=== PATIENT | male | born 1985 | race Caucasian/White ===

== ENCOUNTER 2017-01-24 12:28 | Emergency (ER) | payer OTHER ==
--- NOTE | 2017-01-24 13:04 | ER Document Report ---
ED Medical Screen (RME) - General Stated Complaint: POSSIBLE INSECT BITE Notes: Patient sent to the emergency room by the [facility] for infection to abdomen. Patient states he woke up he felt like a mosquito or something had bit him and it has progressively gotten worse over the last week. Now is draining. Denies fever. Patient states she does have nausea from the pain. I have greeted and performed a rapid initial assessment of this patient. A comprehensive ED assessment and evaluation of the patient, analysis of test results and completion of the medical decision making process will be conducted by additional ED providers. TRAVEL OUTSIDE OF THE [place] IN LAST 30 DAYS: No - Related Data Allergies/Adverse Reactions: aspartame Allergy (Verified 01/24/17 13:02) Past Medical History Renal/ Medical History: Reports: Hx Kidney Stones - Immunizations Hx Diphtheria, Pertussis, Tetanus Vaccination: Yes Physical Exam - Vital signs Vitals: Temp Pulse Resp BP Pulse Ox 99.5 F 74 15 125/87 H 99 01/24/17 13:00 01/24/17 13:00 01/24/17 13:00 01/24/17 13:00 01/24/17 13:00 - Skin Notes: 2 cm area of redness above the umbilicus with bloody drainage. Course - Vital Signs Vital signs: Temp Pulse Resp BP Pulse Ox 99.5 F 74 15 125/87 H 99 01/24/17 13:00 01/24/17 13:00 01/24/17 13:00 01/24/17 13:00 01/24/17 13:00
[2017-01-24] MEDS ORDERED: IBUPROFEN 800 MG TABLET PO ONE (18:27)
[2017-01-24] MEDS ORDERED: VANCOMYCIN HCL INJ 1000 MG VIAL IV ONE (18:45)
[2017-01-24] MEDS ORDERED: LIDOCAINE 1%/EPINEPHRINE INJ 20 ML VIAL INJ ONE (18:45)
--- NOTE | 2017-01-24 18:49 | ER Document Report ---
ED Skin Rash/Insect Bite/Abscs - General Chief Complaint: Insect Bite Stated Complaint: POSSIBLE INSECT BITE Time seen by provider: 18:46 Mode of Arrival: Ambulatory Information source: Patient Notes: This is a 31-year-old male who presents to the emergency room with complaints of possible spider bite to the abdomen. Patient states that he first started have a pimple on the abdominal wall just above the bellybutton. He states that over the last several days, the area is gotten red and swollen. The lesions started to drain pus last night. He states that the lesion was actually twice the size of what it is now yesterday before it started draining. He denies fever or chills. TRAVEL OUTSIDE OF THE [place] IN LAST 30 DAYS: No - HPI Patient complains to provider of: Skin rash/lesion, Other - He thinks he may have had a spider bite but he is not sure Onset: Last week Onset/Duration: Gradual Quality of pain: Dull Severity: Moderate Pain Level: 2 Skin Character: Abscess Skin Temperature: Warm Quality of rash: No: Itchy, Painful, Burning, Other Identify cause: No Medication exposure: denies: Antibiotic, Aspirin, JULIANO / ARB inhibitor, NSAID, Other Food exposure: denies: Shellfish, Nuts, Soybeans, Eggs, Other Exacerbated by: Denies, Other - Touching Relieved by: Denies Similar symptoms previously: No Recently seen / treated by doctor: No - Related Data Allergies/Adverse Reactions: aspartame Allergy (Verified 01/24/17 13:02) Past Medical History - General Information source: Patient - Social History Smoking Status: Current Every Day Smoker Cigarette use (# per day): Yes - half a pack a day Chew tobacco use (# tins/day): No Frequency of alcohol use: Occasional Drug Abuse: None Lives with: Family Family History: Reviewed & Not Pertinent Patient has suicidal ideation: No Patient has homicidal ideation: No - Medical History Medical History: Negative Renal/ Medical History: Reports: Hx Kidney Stones. Denies: Hx Peritoneal Dialysis Surgical Hx: Negative - Immunizations Hx Diphtheria, Pertussis, Tetanus Vaccination: Yes Review of Systems - Review of Systems Notes: Review of systems: Constitutional: Denies fever, chills. EENT: Denies ear pain, sinus tenderness, throat pain, throat swelling. Cardiovascular: Denies chest pain, palpitations, dyspnea or edema. Respiratory: Denies wheezing, cough, hemoptysis. Abdomen: Abdominal wall abscess: See H&P. Denies abdominal pain, nausea, vomiting, diarrhea. Denies BRBPR or melena. Genitourinary: Denies dysuria, pyuria, hematuria, flank pain. Musculoskeletal: denies joint pain or swelling, denies back pain. Neurologic: Denies headache, photophobia, neck stiffness, weakness. Denies loss of bowel or bladder function. Denies saddle anesthesia. Skin: See H&P Physical Exam - Vital signs Vitals: Temp Pulse Resp BP Pulse Ox 99.5 F 74 15 125/87 H 99 01/24/17 13:00 01/24/17 13:00 01/24/17 13:00 01/24/17 13:00 01/24/17 13:00 Notes: Physical exam: GENERAL: 31-year-old man, alert and oriented 3, no acute distress HEAD: Atraumatic, normocephalic. EYES: Pupils equal round and reactive to light, extraocular movements intact, sclera anicteric, conjunctiva are normal. ENT: Moist mucous membranes. NECK: Normal range of motion, supple without lymphadenopathy LUNGS: Breath sounds clear to auscultation bilaterally and equal. No wheezes rales or rhonchi. HEART: Regular rate and rhythm without murmurs, rubs or gallops. ABDOMEN: Soft, normoactive bowel sounds. No tenderness to palpation. The abdominal wall has an area of erythema and swelling and fluctuance and it is draining pus. The area is minimally tender. EXTREMITIES: Normal range of motion, no pitting or edema. No clubbing or cyanosis. NEUROLOGICAL: Cranial nerves II through XII grossly intact. Normal speech, normal gait. PSYCH: Normal mood, normal affect. SKIN: Abscess noted above. Course - Re-evaluation Re-evalutation: 01/24/17 20:21 Patient's tetanus is up-to-date. - Vital Signs Vital signs: Temp Pulse Resp BP Pulse Ox 98.5 F 74 15 125/87 H 99 01/24/17 18:40 01/24/17 18:40 01/24/17 18:40 01/24/17 18:40 01/24/17 18:40 Procedures - Incision and Drainage Mid- Abdomen Time completed: 20:20 Type: Single Anesthetic type: 1% Lidocaine w/epi mL's of anesthetic: 5 Blade size: 11 I&D procedure: Chlorprep applied, Iodoform packing placed Incision Method: Incision made by scalpel Notes: 01/24/17 20:20 Midline incision made. Approximately 20 mL of bloody pus was liberated. The cavity was irrigated and then packed. The wound was dressed. Discharge - Discharge Clinical Impression: abdominal wall abscess Condition: Stable Disposition: HOME, SELF-CARE Instructions: Abscess ([facility]) Additional Instructions: Recommendations: Take the antibiotics as prescribed. Start tonight. Take the pain medicine as prescribed: See the narcotic instruction sheet. You can shower: If the packing falls out, leave it out. I recommend cleaning the area around the abscess gently with Hibiclens soap which is is sold in the pharmacy. Follow-up in 2 days for packing removal. You can cover the wound with gauze and paper tape. It would drain over the next couple of days. Return to the emergency room for worsening swelling, fever (temperature greater than 100.4), spreading redness or increased pain. The pain medicine you're taking prescribed as a narcotic. There are several important things you should know about this medicine: 1. This medicine contains Tylenol: It is important that you do not take Tylenol (or acetaminophen) while on this medicine. Tylenol is metabolized by the liver and taking too much Tylenol (acetaminophen) can lay to liver damage and even liver failure. 2. Taking narcotics for too long can lead to physical and mental dependence. Take this medicine only if really needed and in the lowest quantity to achieve pain relief. 3. Do not drink alcohol while on this medicine. Alcohol interacts with narcotics and the combination can be dangerous. 4. Do not drive or operate machinery while on this medicine. 5. Narcotics do cause constipation, so drink plenty of fluids and daily stool softeners. Prescriptions: Oxycodone HCl/Acetaminophen [Percocet 5-325 mg Tablet] 1 - 2 tab PO ASDIR PRN # 25 tablet PRN Reason: Sulfamethoxazole/Trimethoprim [Bactrim Ds Tablet] 1 each PO BID #14 tablet Forms: Follow-Up (Wound)
[2017-01-24 21:46] VITALS: BP 136/76
== END 2017-01-24 21:47 | disposition home or self-care (01) ==
LOC: ER 12:28
PROC: 0H97XZZ Drainage of Abdomen Skin, External Approach (ICD-10-PCS; principal; 2017-01-24)
DX: L02.211 Cutaneous abscess of abdominal wall (principal); R21 Rash and other nonspecific skin eruption; W57.XXXA Bitten or stung by nonvenomous insect and other nonvenomous arthropods, initial encounter; F17.210 Nicotine dependence, cigarettes, uncomplicated
CPT/HCPCS: 99282; 96365; 96366; 87070; 87205; 87075; 87077; 87186; 10060; J3490; J3370

== ENCOUNTER 2017-01-26 19:41 | Emergency (ER) | payer OTHER ==
[2017-01-26] MEDS ORDERED: PROMETHAZINE HCL 25 MG TABLET PO ONE (20:56)
--- NOTE | 2017-01-26 20:56 | ER Document Report ---
ED Medical Screen (RME) - General Stated Complaint: NAUSEA Time seen by provider: 20:53 Mode of Arrival: Ambulatory Information source: Patient Notes: 31-year-old male presents to ED for nausea and vomiting since last night. He states he was seen 2 days ago for an abdominal abscess and started on Bactrim and Percocet. He states he has been nauseated and vomiting. States he is taken 3 the Bactrim pills and 4 the Percocets. States he has been taken Emetrol and the nausea is a little better. States he has not vomited since this morning. He [facility] and [facility] to clindamycin and is taken one of those pills today. I have greeted and performed a rapid initial assessment of this patient. A comprehensive ED assessment and evaluation of the patient, analysis of test results and completion of medical decision making process will be conducted by an additional ED providers. TRAVEL OUTSIDE OF THE [place] IN LAST 30 DAYS: No - Related Data Allergies/Adverse Reactions: aspartame Allergy (Verified 01/24/17 13:02) Past Medical History Renal/ Medical History: Reports: Hx Kidney Stones. Denies: Hx Peritoneal Dialysis - Immunizations Hx Diphtheria, Pertussis, Tetanus Vaccination: Yes
[2017-01-26 21:26] LABS: APPEARANCE,URINE CLEAR; BILIRUBIN,URINE NEGATIVE (NEGATIVE); GLUCOSE, URINE NEGATIVE (NEGATIVE); KETONES,URINE NEGATIVE (NEGATIVE); LEUKOCYTE ESTERASE,URINE NEGATIVE (NEGATIVE); NITRITE,URINE NEGATIVE (NEGATIVE); PROTEIN,URINE NEGATIVE (NEGATIVE); URINE SPECIFIC GRAVITY 1.031; UROBILINOGEN,URINE NEGATIVE mg/dL (<2.0)
[2017-01-26 21:28] LABS: ABSOLUTE EOSINOPHILS # (AUTO) 0.1 10^3/uL (0.0-0.6); ABSOLUTE LYMPHOCYTES (AUTO) 1.2 10^3/uL (0.5-4.7); ABSOLUTE MONOCYTES (AUTO) 0.7 10^3/uL (0.1-1.4); ABSOLUTE NEUT (AUTO) 4.6 10^3/uL (1.7-8.2); BASOPHILS % (AUTO) 0.2 % (0-2); EOSINOPHILS % (AUTO) 0.8 % (0-6); HEMATOCRIT 46.7 % (37.9-51.0); HEMOGLOBIN 16.3 g/dL (13.5-17.0); HGB HCT DIFFERENCE 2.2; LYMPHOCYTES % (AUTO) 18.1 % (13-45); MEAN CORPUSCULAR HGB CONC 34.8 g/dL (32.0-36.0); MEAN CORPUSCULAR VOLUME 83 fl (80-97); MONOCYTES % (AUTO) 10.4 % (3-13); RED BLOOD COUNT 5.62 10^6/uL (4.35-5.55); RED CELL DISTRIBUTION WIDTH 12.7 % (11.5-14.0); SEGMENTED NEUTROPHILS % (AUTO) 70.5 % (42-78); WHITE BLOOD COUNT 6.5 10^3/uL (4.0-10.5)
[2017-01-26 21:30] LABS: ALANINE AMINOTRANSFERASE 33 U/L (21-72); ALBUMIN 4.4 g/dL (3.5-5.0); ALKALINE PHOSPHATASE 63 U/L (38-126); ANION GAP 13 (5-19); ASPARTATE AMINO TRANSFERASE 19 U/L (17-59); BILIRUBIN,DIRECT 0.2 mg/dL (0.0-0.4); BLOOD UREA NITROGEN 14 mg/dL (7-20); CALCIUM 9.3 mg/dL (8.4-10.2); CARBON DIOXIDE 28 mmol/L (22-30); CHLORIDE 102 mmol/L (98-107); CREATININE RESULT 1.39 mg/dL (0.52-1.25); GLUCOSE 87 mg/dL (75-110); SODIUM 142.5 mmol/L (137-145); TOTAL PROTEIN 7.4 g/dL (6.3-8.2)
--- NOTE | 2017-01-27 00:08 | ER Document Report ---
ED General - General Chief Complaint: Nausea/Vomiting Stated Complaint: NAUSEA Mode of Arrival: Ambulatory Notes: Patient is a 31-year-old male recently seen in this emergency department for a superficial abdominal wall abscess which was incised and drained. He was discharged home on Bactrim and stated after starting to take that medication he developed severe nausea and vomiting with inability to tolerate even oral fluids. He was seen at the [facility] today and transition to clindamycin and has since had resolution of his nausea. States she just ate one hour prior to me coming to evaluate him. When he first arrived here to the emergency department he states he has continued to have nausea and vomiting but that all the symptoms of now completely resolved. Noticed the site of the prior abscess is healing well and much less painful than before. He continues to have a mild amount of purulent drainage expressed from the area. He is not have any constitutional symptoms or fever. Patient has not noted that he seems to improve or worsen his symptoms. No history of using Bactrim in the past TRAVEL OUTSIDE OF THE [place] IN LAST 30 DAYS: No - Related Data Allergies/Adverse Reactions: aspartame Allergy (Verified 01/24/17 13:02) Past Medical History - General Information source: Patient - Social History Smoking Status: Current Every Day Smoker Chew tobacco use (# tins/day): No Frequency of alcohol use: Occasional Drug Abuse: None Lives with: Spouse/Significant other Family History: Reviewed & Not Pertinent Patient has suicidal ideation: No Patient has homicidal ideation: No Renal/ Medical History: Reports: Hx Kidney Stones. Denies: Hx Peritoneal Dialysis - Immunizations Hx Diphtheria, Pertussis, Tetanus Vaccination: Yes Review of Systems - Review of Systems Notes: Constitutional: Negative for fever. HENT: Negative for sore throat. Eyes: Negative for visual changes. Cardiovascular: Negative for chest pain. Respiratory: Negative for shortness of breath. Gastrointestinal: Negative for abdominal pain, positive for nausea and vomiting Genitourinary: Negative for dysuria. Musculoskeletal: Negative for back pain. Skin: Negative for rash. Neurological: Negative for headaches, weakness or numbness. 10 point ROS negative except as marked above and in HPI. Physical Exam - Vital signs Vitals: Temp Pulse Resp BP Pulse Ox 99.4 F 96 22 H 129/81 H 98 01/26/17 20:53 01/26/17 20:53 01/26/17 20:53 01/26/17 20:53 01/26/17 20:53 Interpretation: Normal Notes: PHYSICAL EXAMINATION: GENERAL: Well-appearing, well-nourished and in no acute distress. HEAD: Atraumatic, normocephalic. EYES: Pupils equal round and reactive to light, extraocular movements intact, sclera anicteric, conjunctiva are normal. ENT: nares patent, oropharynx clear without exudates. Moist mucous membranes. NECK: Normal range of motion, supple without lymphadenopathy LUNGS: Breath sounds clear to auscultation bilaterally and equal. No wheezes rales or rhonchi. HEART: Regular rate and rhythm without murmurs ABDOMEN: Soft, nontender, normoactive bowel sounds. No guarding, no rebound. No masses appreciated. EXTREMITIES: Normal range of motion, no pitting or edema. No cyanosis. NEUROLOGICAL: No focal neurological deficits. Moves all extremities spontaneously and on command. PSYCH: Normal mood, normal affect. SKIN: Warm, Dry, normal turgor, there is a 1 cm incision on the central abdominal wall with minimal surrounding erythema. A small amount of purulent drainage expressed from the wound with compression Course - Re-evaluation Re-evalutation: 01/27/17 00:06 Patient presents with nausea and vomiting the setting of TMP-SMX use a known side effect of this medication. His nausea and vomiting has resolved after discontinuation of this medication patient actually ate a meal just prior to my assessment without difficulty. The abscess site that was incised and drained 2 days ago is well-appearing, minimal purulent drainage expressed with compression. [facility] I recommended that the patient take these antibiotics as directed and discontinue the Bactrim given how serious his side effects were.At this time will discharge with return precautions and follow-up recommendations. Verbal discharge instructions given a the bedside and opportunity for questions given. Medication warnings reviewed. Patient is in agreement with this plan and has verbalized understanding of return precautions and the need for primary care follow-up in the next 24-72 hours. - Vital Signs Vital signs: Temp Pulse Resp BP Pulse Ox 99.4 F 77 17 122/88 H 97 01/26/17 23:54 01/27/17 00:44 01/27/17 00:44 01/27/17 00:44 01/27/17 00:44 - Laboratory Result Diagrams: 01/26/17 21:00 01/26/17 21:00 Laboratory results interpreted by me: 01/26/17 01/26/17 21:00 21:00 RBC 5.62 H Creatinine 1.39 H Total Bilirubin 2.0 H Discharge - Discharge Clinical Impression: Nausea and vomiting Qualifiers: Vomiting type: unspecified Vomiting Intractability: non-intractable Qualified Code(s): R11.2 - Nausea with vomiting, unspecified Condition: Good Disposition: HOME, SELF-CARE Additional Instructions: Please take the clindamycin and discontinue the trimethoprim-sulfamethoxazole. Return if you have spreading redness from the prior abscess site, worsening pain to the site, develop a fever of greater than 100.4F, or have any other symptoms that are worrisome to you.
[2017-01-27 00:45] VITALS: BP 122/88
== END 2017-01-27 00:45 | disposition home or self-care (01) ==
LOC: ER 19:41
DX: R11.2 Nausea with vomiting, unspecified (principal); T37.0X5A Adverse effect of sulfonamides, initial encounter; L02.211 Cutaneous abscess of abdominal wall; Z98.890 Other specified postprocedural states; F17.200 Nicotine dependence, unspecified, uncomplicated; Z91.048 Other nonmedicinal substance allergy status
CPT/HCPCS: 36415; 80053; 81001; 85025; 99283

== ENCOUNTER 2018-08-26 02:12 | Emergency (ER) | payer OTHER ==
[2018-08-26] MEDS ORDERED: LIDOCAINE 1% INJ-PF (10 MG/ML) 30 ML SDV INJ ONE (03:09)
[2018-08-26] MEDS ORDERED: ACETAMINOPHEN 325 MG TABLET PO ONE (03:14)
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
[2018-08-26 04:52] VITALS: BP 130/85
== END 2018-08-26 04:52 | disposition home or self-care (01) ==
LOC: ER 02:12
DX: S01.511A Laceration without foreign body of lip, initial encounter (principal); S01.111A Laceration without foreign body of right eyelid and periocular area, initial encounter; Y09 Assault by unspecified means; Z91.018 Allergy to other foods
CPT/HCPCS: 99284; 70450; 70486; 72125; 12013; J3490

== ENCOUNTER 2019-01-17 22:29 | Observation (INO) | payer OTHER ==
--- NOTE | 2019-01-17 23:05 | ER Document Report ---
ED General - General Chief Complaint: Abdominal Pain Stated Complaint: ABDOMINAL PAIN Time Seen by Provider: 01/17/19 23:04 Notes: Patient is a 33-year-old male that presents to the emergency department for chief complaint of abdominal pain. Patient states the pain started around 8 AM this morning, had a slight ache throughout his abdomen mainly on the right side, with associated diarrhea nausea and had one episode of vomiting while in the waiting room, the pain has worsened throughout the day, and they currently rate the pain as a 9 out of 10, and described as aching, and constant. He states the pain is mainly in the right lower quadrant of the abdomen, he did call the [place] nursing line and the advised to come to the emergency department to be evaluated. He reports a history of kidney stones, but this pain is much different than he is experienced in the past, denies having any flank pain, dysuria, hematuria. Past Medical History: Kidney stones Past Surgical History: Tonsillectomy Social History: Denies tobacco use and admits to social alcohol use, denies illicit drug use. Family History: Reviewed and noncontributory for presenting illness Allergies: Reviewed, see documented allergy list. REVIEW OF SYSTEMS: Other than noted above, the 12 point review of systems was reviewed with the patient and were negative, all pertinent findings are included in the HPI. PHYSICAL EXAMINATION: Vital signs reviewed, nursing noted reviewed. GENERAL: Well-appearing, well-nourished and appears uncomfortable HEAD: Atraumatic, normocephalic. EYES: Eyes appear normal, extraocular movements intact, sclera anicteric, conjunctiva are normal. ENT: nares patent, oropharynx clear without exudates. Moist mucous membranes. NECK: Normal range of motion, supple without lymphadenopathy LUNGS: Breath sounds clear to auscultation bilaterally and equal. No wheezes rales or rhonchi. HEART: Regular rate and rhythm without murmurs ABDOMEN: Soft, normal bowel sounds, tenderness with palpation, particular in the right lower quadrant of the abdomen, positive for tenderness over McBurney's point, No rebound, guarding, or rigidity. No masses appreciated. EXTREMITIES: Nontender, good range of motion, no pitting or edema. NEUROLOGICAL: No focal neurological deficits. Moves all extremities spontaneously Motor and sensory grossly intact on exam. PSYCH: Normal mood, normal affect. SKIN: Warm, Dry, normal turgor, no rashes or lesions noted on exposed skin TRAVEL OUTSIDE OF THE [place] IN LAST 30 DAYS: No - Related Data Allergies/Adverse Reactions: aspartame Allergy (Verified 01/24/17 13:02) Past Medical History - Social History Smoking Status: Never Smoker Family History: Reviewed & Not Pertinent Renal/ Medical History: Reports: Hx Kidney Stones. Denies: Hx Peritoneal Dialysis GI Medical History: Reports: Hx Gastroesophageal Reflux Disease - Immunizations Hx Diphtheria, Pertussis, Tetanus Vaccination: Yes Physical Exam - Vital signs Vitals: Temp Pulse BP Pulse Ox 97.9 F 88 143/89 H 100 01/17/19 22:38 01/17/19 22:38 01/17/19 22:38 01/17/19 22:38 Course - Re-evaluation Re-evalutation: Patient seen and examined vital signs reviewed. Laboratory data and imaging were ordered as appropriate for the patient's presenting symptoms and complaint, with consideration of any critical or life threatening conditions that may be associated with their obtained history and exam as noted above. Patient was treated with IV fluids, IV fentanyl and Zofran initially for his pain Results were reviewed when available and demonstrated mild leukocytosis on his blood work, CT imaging of the abdomen and pelvis, was positive for acute appendicitis, which the patient's clinical exam is concerning for. The patient was re-evaluated and was still having some pain, he was given IV Dilaudid for the pain, and started on IV Zosyn 3.375 g Evaluation was most consistent with acute appendicitis, discussed the case with Dr. Nichols with surgery, who agreed to see the patient to his service. Results were discussed with the patient at this point after careful consideration I feel that that patient should be admitted to the hospital. This was discussed with the patient that it is in the best interest for their care to be admitted for further evaluation and management. Patient agreed with this plan of care. A call was placed to the admitted physician, Dr. Nichols who graciously accepted the patient onto their service. *Note is created using voice recognition software and may contain spelling, syntax or grammatical errors. Laboratory 01/17/19 01/17/19 01/18/19 23:49 23:49 00:14 WBC 11.6 H RBC 5.68 H Hgb 16.4 Hct 47.4 MCV 84 MCH 29.0 MCHC 34.7 RDW 13.6 Plt Count 195 Seg Neutrophils % 83.9 H Lymphocytes % 8.5 L Monocytes % 6.1 Eosinophils % 1.2 Basophils % 0.3 Absolute Neutrophils 9.8 H Absolute Lymphocytes 1.0 Absolute Monocytes 0.7 Absolute Eosinophils 0.1 Absolute Basophils 0.0 Sodium 140.6 Potassium 4.0 Chloride 104 Carbon Dioxide 27 Anion Gap 10 BUN 14 Creatinine 1.18 Est GFR ( Amer) > 60 Est GFR (Non-Af Amer) > 60 Glucose 100 Calcium 9.6 Total Bilirubin 0.9 Direct Bilirubin 0.2 Neonat Total Bilirubin Not Reportable Neonat Direct Bilirubin Not Reportable Neonat Indirect Bili Not Reportable AST 30 ALT 48 Alkaline Phosphatase 71 Total Protein 8.0 Albumin 4.4 Lipase 53.9 Urine Color YELLOW Urine Appearance CLEAR Urine pH 5.0 Ur Specific [place] 1.025 Urine Protein NEGATIVE Urine Glucose (UA) NEGATIVE Urine Ketones NEGATIVE Urine Blood NEGATIVE Urine Nitrite NEGATIVE Urine Bilirubin NEGATIVE Urine Urobilinogen NEGATIVE Ur Leukocyte Esterase NEGATIVE Urine WBC (Auto) 1 Urine RBC (Auto) 0 Urine Mucus (Auto) RARE Urine Ascorbic Acid NEGATIVE Abdomen/Pelvis CT 01/17/19 23:21 IMPRESSION: Acute appendicitis. - Vital Signs Vital signs: Temp Pulse Resp BP Pulse Ox 97.9 F 88 143/89 H 100 01/17/19 22:38 01/17/19 22:38 01/17/19 22:38 01/17/19 22:38 - Laboratory Result Diagrams: 01/17/19 23:49 01/17/19 23:49 Laboratory results interpreted by me: 01/17/19 23:49 WBC 11.6 H RBC 5.68 H Seg Neutrophils % 83.9 H Lymphocytes % 8.5 L Absolute Neutrophils 9.8 H Discharge - Discharge Clinical Impression: Acute appendicitis Qualifiers: Acute appendicitis type: with localized peritonitis Appendicitis gangrene presence: unspecified whether gangrene present Appendicitis perforation presence: without perforation Appendicitis abscess presence: without abscess Qualified Code(s): K35.30 - Acute appendicitis with localized peritonitis, without perforation or gangrene Leukocytosis Qualifiers: Leukocytosis type: unspecified Qualified Code(s): D72.829 - Elevated white blood cell count, unspecified Condition: Stable Disposition: HOME, SELF-CARE Admitting Provider: Surgicalist - Dr. Nichols Unit Admitted: Surgical Floor
[2019-01-17] MEDS ORDERED: NORMAL SALINE 1000 ML 1,000 ML IV ONE (23:19)
[2019-01-17] MEDS ORDERED: FENTANYL CITRATE INJ/PF 100 MCG/2 ML AMPUL IV ONE (23:20)
[2019-01-17] MEDS ORDERED: ONDANSETRON HCL INJ/PF 4 MG/2 ML SDV IV ONE (23:20)
[2019-01-17 23:56] LABS: ABSOLUTE EOSINOPHILS # (AUTO) 0.1 10^3/uL (0.0-0.6); ABSOLUTE MONOCYTES (AUTO) 0.7 10^3/uL (0.1-1.4); ABSOLUTE NEUT (AUTO) 9.8 10^3/uL (1.7-8.2); BASOPHILS % (AUTO) 0.3 % (0-2); EOSINOPHILS % (AUTO) 1.2 % (0-6); HEMATOCRIT 47.4 % (37.9-51.0); HEMOGLOBIN 16.4 g/dL (13.5-17.0); LYMPHOCYTES % (AUTO) 8.5 % (13-45); MEAN CORPUSCULAR HGB CONC 34.7 g/dL (32.0-36.0); MEAN CORPUSCULAR VOLUME 84 fl (80-97); MONOCYTES % (AUTO) 6.1 % (3-13); PLATELET COUNT 195 10^3/uL (150-450); RED BLOOD COUNT 5.68 10^6/uL (4.35-5.55); RED CELL DISTRIBUTION WIDTH 13.6 % (11.5-14.0); SEGMENTED NEUTROPHILS % (AUTO) 83.9 % (42-78); TOTAL CELLS COUNTED % (AUTO) 100 %; WHITE BLOOD COUNT 11.6 10^3/uL (4.0-10.5)
[2019-01-18 00:09] LABS: ALANINE AMINOTRANSFERASE 48 U/L (21-72); ALBUMIN 4.4 g/dL (3.5-5.0); ALKALINE PHOSPHATASE 71 U/L (38-126); ANION GAP 10 (5-19); ASPARTATE AMINO TRANSFERASE 30 U/L (17-59); BILIRUBIN,DIRECT 0.2 mg/dL (0.0-0.4); BILIRUBIN,TOTAL 0.9 mg/dL (0.2-1.3); BLOOD UREA NITROGEN 14 mg/dL (7-20); CALCIUM 9.6 mg/dL (8.4-10.2); CARBON DIOXIDE 27 mmol/L (22-30); CHLORIDE 104 mmol/L (98-107); GLUCOSE 100 mg/dL (75-110); LIPASE 53.9 U/L (23-300); SODIUM 140.6 mmol/L (137-145)
[2019-01-18 00:35] LABS: APPEARANCE,URINE CLEAR; BILIRUBIN,URINE NEGATIVE (NEGATIVE); COLOR,URINE YELLOW; GLUCOSE, URINE NEGATIVE (NEGATIVE); KETONES,URINE NEGATIVE (NEGATIVE); LEUKOCYTE ESTERASE,URINE NEGATIVE (NEGATIVE); NITRITE,URINE NEGATIVE (NEGATIVE); PROTEIN,URINE NEGATIVE (NEGATIVE); URINE SPECIFIC GRAVITY 1.025; UROBILINOGEN,URINE NEGATIVE mg/dL (<2.0)
[2019-01-18] MEDS ORDERED: HYDROMORPHONE HCL INJ/PF 2 MG/ML AMPULE IV ONE (00:46)
--- NOTE | 2019-01-18 01:05 | RADIOLOGY REPORT (SQ) ---
EXAM DESCRIPTION: CT ABDOMEN PELVIS WITH IV CONTRAST COMPLETED DATE/TME: 01/17/2019 23:21 CLINICAL HISTORY: 33 years, Male, rlq abdominal pain Comparison: None TECHNIQUE: Contiguous axial CT images of the abdomen and pelvis were obtained. Sagittal and coronal reformats were reviewed. This exam was performed according to our departmental dose-optimization program, which includes automated exposure control, adjustment of the mA and/or kV according to patient size and/or use of iterative reconstruction technique. FINDINGS: Lung bases: Clear. Liver:Unremarkable. No focal liver lesion. Gallbladder:Unremarkable. No gallstones. No gallbladder wall thickening or pericholecystic fluid. Spleen:Unremarkable Pancreas: Pancreas is unremarkable. Adrenal glands:Within normal limits. Kidneys/ureters: 1 mm calculus in the lower pole the left kidney. No hydronephrosis. No nephrolithiasis on the right. Stomach/small bowel/colon: Stomach is unremarkable. Small bowel is unremarkable. Colon is unremarkable. Appendix: Dilated appendix measuring 11 mm in diameter with wall thickening and surrounding inflammatory changes including a small amount of fluid. No drainable fluid collections. No free air. Findings consistent with acute appendicits. Peritoneum: No free fluid. Vascular structures: within normal limits Lymph nodes: No abnormal lymph nodes. Bladder:Unremarkable. Pelvic organs: No acute abnormality Bones: No acute osseous abnormality. Soft tissues: Unremarkable.. IMPRESSION: Acute appendicitis.
[2019-01-18] MEDS ORDERED: PIPERACILLIN/TAZOBACTAM 3.375 GM VIAL IV ONE ×2 (01:16→06:02)
[2019-01-18] MEDS ORDERED: HYDROMORPHONE HCL INJ/PF 2 MG/ML AMPULE IV PRN ×3 (01:16→10:59)
[2019-01-18] MEDS ORDERED: NORMAL SALINE 1000 ML 1,000 ML IV ONE (01:18)
[2019-01-18] MEDS ORDERED: ONDANSETRON HCL INJ/PF 4 MG/2 ML SDV IV ONE (03:23)
[2019-01-18] MEDS ORDERED: ONDANSETRON HCL INJ/PF 4 MG/2 ML SDV IV PRN ×3 (04:14→10:58)
[2019-01-18] MEDS ORDERED: PIPERACILLIN/TAZOBACTAM 3.375 GM VIAL IV PRN (04:14)
[2019-01-18] MEDS: NORMAL SALINE 1000 ML 1,000 ML IV PRN (04:51)
[2019-01-18] MEDS: PIPERACILLIN SODIUM/TAZOBACTAM 3.375 GM in NORMAL SALINE 100 ML IV SCH ×3 (06:23→17:27)
--- NOTE | 2019-01-18 08:13 | HISTORY AND PHYSICAL E ---
History and Physical NAME: AWA VALDEZ : 1985 AGE: 33Y ADMITTED: 01/18/2019 ROOM: 209 CHIEF COMPLAINT: Abdominal pains. HISTORY OF PRESENT ILLNESS: This is a 33-year-old male who complained of vague generalized abdominal pains around 8 a.m. yesterday. The pains got worse and localized in the right lower quadrant around 8 p.m. followed by nausea and vomiting. The patient took Milk of Magnesia in the morning after the onset of pains and this was followed with some diarrhea. Around 10 p.m. he went to the ED where a CAT scan of the abdomen was done which showed acute appendicitis. His white count is slightly elevated to around 11,000. He also admits to having chills and fever though low grade just prior to going to ED. He denies any dysuria nor cough or chest pains. PAST MEDICAL HISTORY: History of 3 episodes of kidney stones. He said his pains are "the reverse of kidney stones." PAST SURGICAL HISTORY: He had tonsillectomy as a kid. ALLERGIES: None known. SOCIAL HISTORY: Denies smoking. Drinks socially. FAMILY HISTORY: Mother has history of diabetes type 2. PHYSICAL EXAMINATION: GENERAL: Well-developed, well-nourished 33-year-old male, alert and oriented, complaining of right lower quadrant pains. He said he just got pain medications in the ED and the pain is not as bad at this examination. NECK: Supple. No thyromegaly. LUNGS: Clear. HEART: Regular sinus rhythm. ABDOMEN: Soft with tenderness in the right lower quadrant, no definite rebound. EXTREMITIES: No edema. IMPRESSION: Acute appendicitis. PLAN: 1. The patient was started already on IV antibiotics in the ED. 2. Continue with hydration. 3. For laparoscopic appendectomy. DICTATING PHYSICIAN: DIVYA WORRELL M.D. [id number] PHY#: [id number] ID: [id number] JOB#: [id number] ACCT: [id number] cc: >
[2019-01-18] MEDS ORDERED: MIDAZOLAM 2 MG/2 ML INJ ONE (09:09)
[2019-01-18] MEDS ORDERED: FENTANYL CITRATE INJ/PF 100 MCG/2 ML AMPUL ONE (09:09)
[2019-01-18] MEDS ORDERED: PROPOFOL INJ 200 MG/20 ML VIAL IV ONE (09:10)
[2019-01-18] MEDS ORDERED: BUPIVACAINE HCL 0.25 % INJ/PF (2.5 MG/1 ML) 30 ML VIAL ONE (09:10)
[2019-01-18] MEDS ORDERED: SUGAMMADEX SODIUM 200 MG/2 ML SDV IV ONE (09:10)
[2019-01-18] MEDS ORDERED: DEXAMETHASONE SOD PHOSPHATE INJ 4 MG/1 ML VIAL ONE (09:10)
[2019-01-18] MEDS ORDERED: ACETAMINOPHEN 1,000 MG/100 ML RTUPB IV ONE (09:10)
[2019-01-18] MEDS ORDERED: ONDANSETRON HCL INJ/PF 4 MG/2 ML SDV ONE (09:10)
[2019-01-18] MEDS ORDERED: LIDOCAINE 0.5% INJ-PF (5 MG/ML) 50 ML SDV ONE (09:11)
[2019-01-18] MEDS ORDERED: FENTANYL CITRATE INJ/PF 100 MCG/2 ML AMPUL IV PRN ×3 (09:55)
[2019-01-18] MEDS ORDERED: MORPHINE SULFATE 10 MG/ML INJ IV PRN (09:55)
[2019-01-18] MEDS ORDERED: MEPERIDINE HCL/PF INJ 25 MG/1 ML DISP.SYRIN IV PRN (09:55)
[2019-01-18] MEDS ORDERED: DIPHENHYDRAMINE HCL 50 MG/ML VIAL IV PRN (09:55)
[2019-01-18] MEDS ORDERED: PROMETHAZINE HCL INJ 25 MG/1 ML VIAL IV PRN ×2 (09:55)
[2019-01-18] MEDS: FENTANYL CITRATE INJ/PF 100 MCG/2 ML AMPUL ONE ×2 (10:50→10:55)
[2019-01-18] MEDS ORDERED: NORMAL SALINE 1000 ML 1,000 ML IV PRN (11:00)
--- NOTE | 2019-01-18 12:08 | OPERATIVE REPORT E ---
Operative Report NAME: AWA VALDEZ : 1985 AGE: 33Y DATE OF SURGERY: 01/18/2019 ROOM: 209 PREOPERATIVE DIAGNOSIS: Acute appendicitis. POSTOPERATIVE DIAGNOSIS: Acute appendicitis. PROCEDURE: Laparoscopic appendectomy. ANESTHESIA: General. SURGEON: DIVYA WORRELL M.D. INDICATIONS: This is a 33-year-old male complaining of right lower quadrant pain yesterday. The patient went to ED where a CAT scan of the abdomen revealed acute appendicitis. He was tender in the right lower quadrant, but no definite rebound. DESCRIPTION OF PROCEDURE: The patient was placed in the supine position and after adequate general anesthesia the abdomen was then prepped and draped in the usual sterile fashion. Appropriate timeout was then called. Next, an infraumbilical incision made and the fascia opened and David trocar inserted through the fascia to the abdominal cavity and CO2 insufflated to a pressure of 15 mmHg. Two other trocars were placed, a 5 mm in the suprapubic and a 12 mm in the left lower quadrant. Attention was then directed to the area of the appendix and noted inflammation around the area and appendix noted to be quite inflamed, but covered with a lot fat pads. The appendix was subsequently lifted up with a Emely and mesoappendix subsequently dissected, cauterized and divided with the use of Harmonic amandeep. This was done all the way down into the junction to the cecum. The appendix was then continued to be lifted up and the base, which appeared to be not involved, was then divided with a 45 mm BELLA blue load. Specimen was then placed in an endobag and pulled out of the umbilical port. The operative site was then reinspected. There was a small amount of oozing noted in the medial side of the stump. This was controlled with a hemoclip. The area was then irrigated and appeared to have stopped bleeding. At any rate, Surgicel was used to place around this area to further aid in hemostasis. Next, a 15-Bhutanese drain was then placed through the suprapubic port into the abdominal cavity and pulled up towards the liver. It was placed in the area of the appendix in the lateral gutter. It was then anchored to the skin with 2-0 silk. All the trocars were then removed and CO2 allowed to come out of the trocar sites. The fascial defect at the infraumbilical area was then closed with [id number] suture using 0 Vicryl and 2 stay sutures, which were placed earlier, were tied together. They were 0 Vicryl sutures. Next, Marcaine was then injected in the fascia and the subcutaneous layers of the incision sites. Next, all the skin incisions were then closed with running subcuticular 4-0 Vicryl. Steri-Strips were then placed over the operative sites. Needle, instrument, sponge count were all correct. Estimated blood loss about 40 mL. Patient brought to the recovery room in satisfactory condition, extubated. DICTATING PHYSICIAN: DIVYA WORRELL M.D. [id number] PHY#: [id number] ID: [id number] JOB#: [id number] ACCT: [id number] cc:DIVYA WORRELL M.D. >
[2019-01-18] MEDS ORDERED: METRONIDAZOLE 500 MG/NS RTU 500 MG/100 ML RTUPB IV SCH (14:00)
[2019-01-18] MEDS ORDERED: DIPHENHYDRAMINE HCL 25 MG CAPSULE ONE (15:30)
[2019-01-18] MEDS: OXYCODONE-ACETAMINOPHEN 5-325 MG TABLET PO PRN (15:32)
[2019-01-18] MEDS ORDERED: DIPHENHYDRAMINE HCL 25 MG CAPSULE PO PRN (15:45)
[2019-01-18] MEDS: KETOROLAC TROMETHAMINE INJ/PF 30 MG/1 ML SDV IV SCH (17:28)
[2019-01-18] MEDS ORDERED: CIPROFLOXACIN 400 MG/D5W RTU 400 MG/200 ML RTUPB IV SCH (22:00)
[2019-01-19] MEDS: OXYCODONE-ACETAMINOPHEN 5-325 MG TABLET PO PRN (00:08)
[2019-01-19] MEDS: PIPERACILLIN SODIUM/TAZOBACTAM 3.375 GM in NORMAL SALINE 100 ML IV SCH ×2 (00:09→05:44)
[2019-01-19] MEDS: NORMAL SALINE 1000 ML 1,000 ML IV PRN (00:10)
[2019-01-19] MEDS: KETOROLAC TROMETHAMINE INJ/PF 30 MG/1 ML SDV IV SCH (03:06)
[2019-01-19 09:25] VITALS: BP 132/79
--- NOTE | 2019-01-19 12:38 | DISCHARGE SUMMARY E ---
Discharge Summary NAME: AWA VALDEZ : 1985 AGE: 33Y ADMITTED: 01/18/2019 DISCHARGED: 01/19/2019 FINAL DIAGNOSIS: Acute appendicitis. PROCEDURE: On 01/18/2019 laparoscopic appendectomy, surgeon Dr. Nichols. HOSPITAL COURSE: This is a 33-year-old male who complained of abdominal pain the day prior to admission. He went to the ED on the night of 01/17/2019 where a CAT scan of the abdomen was performed, which showed acute appendicitis. He then underwent laparoscopic appendectomy on admission on 01/18/2019 for an acute appendicitis. Postoperatively he did very well and discharged improved on 01/19/2019. A prescription was given to him for Percocet 5/325 x6 to take 1 every 8 hours p.r.n. for pain. An appointment for him to be followed up in the surgical clinic in 2 weeks was also arranged. The patient was then discharged improved on 01/19/2019 with the above final diagnosis. DICTATING PHYSICIAN: DIVYA NICHOLS M.D. [id number] PHY#: [id number] ID: [id number] JOB#: [id number] ACCT: [id number] cc:DIVYA MAYNARD M.D. >
== END 2019-01-19 09:37 | disposition home or self-care (01) ==
LOC: ER 22:29 → EH 01-18 01:36 → 2N 01-18 03:33
PROVIDERS: ATTEND Surgery
PROC: 0DTJ4ZZ Resection of Appendix, Percutaneous Endoscopic Approach (ICD-10-PCS; principal; 2019-01-18 09:00)
DX: K35.30 Acute appendicitis with localized peritonitis, without perforation or gangrene (principal); Z87.442 Personal history of urinary calculi
CPT/HCPCS: 96376; 99285; 96361; 96375; 96365; 36415; 83690; 85025; 80053; 81001; 88304 ×2; 74177; 44970; J2250; J1100; J3010 ×2; J3490 ×2; J1885 ×2; J1170; J2405 ×2; J7030 ×3; J2704; J2543 ×2; J0131; 840

== ENCOUNTER → 2020-01-17 | Outpatient (CLI) | payer OTHER ==
--- NOTE | 2020-01-17 08:29 | RADIOLOGY REPORT (SQ) ---
EXAM DESCRIPTION: CT SINUSES FOR ENT COMPLETED DATE/TIME: 01/17/2020 7:56 am REASON FOR STUDY: INTRANASAL MASS R22.0 LOCALIZED SWELLING, MASS AND LUMP, HEAD COMPARISON: None. TECHNIQUE: Noncontrast scanning through the paranasal sinuses using bone algorithm. Reconstructed MPR images reviewed. All images stored on PACS. All CT scanners at this facility use dose modulation, iterative reconstruction, and/or weight based d osing when appropriate to reduce radiation dose to as low as reasonably achievable (ALARA). [facility]: Dose Right [facility]: CareDose [facility]: Dose Right [facility]: Teradose 4D [facility]: [place] [employer] RADIATION DOSE: 47mGy. LIMITATIONS: None. FINDINGS: Right sinuses and drainage pathways: Post-surgical changes: None. Frontal sinus: Normal. Frontoethmoidal Recess: Normal. Anterior Ethmoid Sinuses: Normal. Posterior Ethmoid Sinuses: Normal. Sphenoid Sinus: Normal. Sphenoethmoidal Recess: Normal. Maxillary Sinus: Mild mucous membrane thickening, floor right maxillary sinus Ostiomeatal Complex: Normal. Left Sinuses and Drainage Pathways: Post-Surgical Changes: None. Frontal Sinus: Mucous membrane thickening along the inferior left frontal sinus Frontoethmoidal Recess: Opacified by mucous membrane thickening Anterior Ethmoid Sinuses: Mucous membrane thickening Posterior Ethmoid Sinuses: Normal. Sphenoid Sinus: Normal. Sphenoethmoidal Recess: Normal. Maxillary Sinus: Circumferential mucous membrane thickening Ostiomeatal Complex: Opacified with mucous membrane thickening Right Olfactory Fossa: No polyps. Left Olfactory Fossa: No polyps. Middle Turbinate Madalyn [place]: No. Paradoxical Middle Turbinate: No. Atelectatic Uncinated Process: No. Frontal Scooby Cell Type I: Bilateral Frontal Scooby Cell Type II: Bilateral Interfrontal Sinus Septal Cell: None. Supra-Orbital Ethmoid: None. Frontal Bullar Cell: None. Suprabullar Bullar Cell: None. Sphenoethmoidal ([place]) Cell: None. Pneumatization of the Anterior Clinoid Processes: no Hypoplastic Maxillary Sinus: None. Osteoneogenesis: None. Bone Dehiscence:None. Nasal Cavity: Normal. Nasal Septum: Midline Anatomic Variants: Right V[place] Canal: Normal. Left V[place] Canal: Normal. IMPRESSION: Left-sided frontal, ethmoid, and maxillary sinus inflammatory change TECHNICAL DOCUMENTATION: JOB ID: [id number] Quality ID # [id number]: Final reports with documentation of one or more dose reduction techniques (e.g., Au tomated exposure control, adjustment of the mA and/or kV according to patient size, use of iterative reconstruction technique) 2010 [employer]- All Rights Reserved Reading location - IP/workstation name: [email or web address]
== END ==
LOC: RAD 07:40
PROVIDERS: ATTEND Otolaryngology
DX: R22.0 Localized swelling, mass and lump, head (principal)
CPT/HCPCS: 70486

== ENCOUNTER 2020-01-21 08:09 | Day surgery (SDC) | payer OTHER ==
[2020-01-21] MEDS ORDERED: FENTANYL CITRATE INJ/PF 100 MCG/2 ML AMPUL ONE (09:46)
[2020-01-21] MEDS ORDERED: ONDANSETRON HCL INJ/PF 4 MG/2 ML SDV ONE (09:47)
[2020-01-21] MEDS ORDERED: DEXAMETHASONE SOD PHOSPHATE INJ 4 MG/1 ML VIAL ONE (09:47)
[2020-01-21] MEDS ORDERED: MIDAZOLAM 2 MG/2 ML INJ ONE (09:47)
[2020-01-21] MEDS ORDERED: PROPOFOL INJ 200 MG/20 ML VIAL IV ONE (09:47)
[2020-01-21] MEDS ORDERED: LIDOCAINE 2%/EPINEPHRINE INJ 1.7 ML CARTRIDGE ONE ×2 (09:50→10:39)
[2020-01-21] MEDS ORDERED: COCAINE HCL 4% TOPICAL SOLN 4 ML ONE (09:50)
[2020-01-21] MEDS ORDERED: OXYMETAZOLINE HCL 0.05% NASAL SPRAY 15 ML BOTTLE ONE ×2 (09:50→11:31)
[2020-01-21] MEDS ORDERED: CEFAZOLIN INJ 1 GM VIAL ONE (10:18)
[2020-01-21 10:27] LABS: ABSOLUTE EOSINOPHILS # (AUTO) 0.2 10^3/uL (0.0-0.6); ABSOLUTE LYMPHOCYTES (AUTO) 1.6 10^3/uL (0.5-4.7); ABSOLUTE MONOCYTES (AUTO) 0.7 10^3/uL (0.1-1.4); ABSOLUTE NEUT (AUTO) 4.2 10^3/uL (1.7-8.2); BASOPHILS % (AUTO) 0.5 % (0-2); EOSINOPHILS % (AUTO) 2.7 % (0-6); HEMATOCRIT 42.2 % (37.9-51.0); LYMPHOCYTES % (AUTO) 23.8 % (13-45); MEAN CORPUSCULAR HEMOGLOBIN 30.7 pg (27.0-33.4); MEAN CORPUSCULAR HGB CONC 35.6 g/dL (32.0-36.0); MEAN CORPUSCULAR VOLUME 86 fl (80-97); MONOCYTES % (AUTO) 10.4 % (3-13); PLATELET COUNT 205 10^3/uL (150-450); RED BLOOD COUNT 4.91 10^6/uL (4.35-5.55); RED CELL DISTRIBUTION WIDTH 13.2 % (11.5-14.0); SEGMENTED NEUTROPHILS % (AUTO) 62.6 % (42-78); TOTAL CELLS COUNTED % (AUTO) 100 %; WHITE BLOOD COUNT 6.8 10^3/uL (4.0-10.5)
[2020-01-21] MEDS ORDERED: PROMETHAZINE HCL INJ 25 MG/1 ML VIAL IV PRN (10:39)
[2020-01-21] MEDS ORDERED: DIPHENHYDRAMINE HCL 50 MG/ML VIAL IV PRN (10:39)
[2020-01-21] MEDS ORDERED: MORPHINE SULFATE 10 MG/ML INJ IV PRN (10:39)
[2020-01-21] MEDS ORDERED: FENTANYL CITRATE INJ/PF 100 MCG/2 ML AMPUL IV PRN ×3 (10:39)
[2020-01-21] MEDS ORDERED: MEPERIDINE HCL/PF INJ 25 MG/1 ML DISP.SYRIN IV PRN (10:39)
[2020-01-21 10:56] LABS: ANION GAP 10 (5-19); BLOOD UREA NITROGEN 13 mg/dL (7-20); CALCIUM 9.2 mg/dL (8.4-10.2); CARBON DIOXIDE 26 mmol/L (22-30); CHLORIDE 105 mmol/L (98-107); GLUCOSE 86 mg/dL (75-110); POTASSIUM 4.5 mmol/L (3.6-5.0)
[2020-01-21] MEDS ORDERED: BALANCED SALT IRRIG SOLN COMB2 15 ML BOTTLE ONE (11:16)
[2020-01-21] MEDS: FENTANYL CITRATE INJ/PF 100 MCG/2 ML AMPUL ONE ×2 (11:55→12:00)
[2020-01-21] MEDS ORDERED: HYDROCODONE/ACETAMINOPHEN 5-325 MG TABLET ONE (12:44)
[2020-01-21] MEDS ORDERED: SUCCINYLCHOLINE CHLORIDE INJ 200 MG/10 ML VIAL ONE (13:20)
--- NOTE | 2020-01-21 13:22 | Operative Report ---
Operative Report-[facility] Operative Report: Date: 21 January 2020 History: 34-year-old male resented to the otolaryngology clinic with a left in tranasal mass. At the time of his presentation which was roughly 3 weeks ago the mass was contained within the nasal cavity. Upon follow-up after his CT scan the mass filled the nasal cavity and was extending beyond the nasal vestibule. The patient did state the mass was friable and bleeding. CT scan of the sinuses was reviewed and the mass appeared to arise from the septum. The mass did not extend intracranially. Patient presents today for excision of the intranasal mass and nasal endoscopy. 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 Excision intranasal mass, left 2. Excisional biopsy of septal mucosa at attachment site of the intranasal m ass, left 3. Rigid nasal endoscopy, left Surgeon: Delmar Vargas MD, FACS, [facility] Anesthesia: General via endotracheal intubation Procedure: Receiving from consent, the patient was transported to the operating room and placed supine on the operating table. After successful induction and intubation anesthesia cottonoids saturated with 4% cocaine were placed into each nasal cavity. The cottonoids were carefully placed around the intranasal mass. After about 5 minutes the cottonoids were removed and the nasal septum on the right side was injected with 2% lidocaine 100,000 epinephrine. The intranasal mass along with the nasal septum were injected with 2% lidocaine with 1 200,000 epinephrine on the left side. The cottonoids were replaced. Patient was then prepped and draped in a sterile fashion. Cottonoids were removed from the left side. Placing a Christophe speculum into the left nasal cavity the attachment of the mass was identified to be at the mid septal level. Bipolar cautery was used to cauterize the mass at that space and then iris scissors were used to transect this cauterized area and the mass was removed. A 15 blade was used to incise a square incision surrounding the attachment site. A Christophe elevator was used to elevate a mucoperichondrial flap, freeing the previously incised excisional area. The mass did not extend into the cartilage. Excisional biopsy site was removed in toto and sent along with the specimen for pathologic analysis. Hemostasis was obtained using bipolar cautery. Next a rigid nasal endoscope was inserted into the left nasal cavity. The endoscope was advanced towards the middle meatus which was found to be normal. The root of the middle turbinate was identified and found to be normal. The roof of the nasal cavity was normal. No evidence of masses. The endoscope was then advanced into the nasopharynx which was normal. No masses were noted. The endoscope was removed. An absorbable packing was then placed into the left nasal cavity and saturated with Afrin nasal spray. No complications. Patient was then given back to anesthesia who successfully extubated the patient without any complications. Estimated blood loss: 15 mL Fluids: 500 mL The patient was then transported to the Post Anesthesia Care Unit in stable condition with spontaneous respiration. No complication.
[2020-01-21] MEDS ORDERED: ALBUTEROL SULFATE 0.083% NEB 2.5 MG/3 ML AMPUL NEB ONE (14:31)
[2020-01-21 15:09] VITALS: BP 136/97
== END 2020-01-21 13:50 | disposition home or self-care (01) ==
LOC: OROUT 08:09
PROVIDERS: ATTEND Otolaryngology
DX: D10.6 Benign neoplasm of nasopharynx (principal); R04.0 Epistaxis
CPT/HCPCS: 36415; 85025; 80048; 88305 ×2; 31231; 30117; C1769; J2250; J3490 ×4; J0690; J1100; J3010; J0330; J2405; J2704

== ENCOUNTER 2020-03-16 05:08 | Emergency (ER) | payer OTHER ==
[2020-03-16] MEDS ORDERED: KETOROLAC TROMETHAMINE INJ/PF 30 MG/1 ML SDV IV ONE (05:36)
[2020-03-16] MEDS ORDERED: ONDANSETRON HCL INJ/PF 4 MG/2 ML SDV IV ONE (05:36)
[2020-03-16] MEDS ORDERED: NORMAL SALINE 1000 ML 1,000 ML IV PRN (05:37)
[2020-03-16 06:10] LABS: APPEARANCE,URINE SLIGHTLY-CLOUDY; BILIRUBIN,URINE NEGATIVE (NEGATIVE); COLOR,URINE YELLOW; GLUCOSE, URINE NEGATIVE (NEGATIVE); KETONES,URINE NEGATIVE (NEGATIVE); LEUKOCYTE ESTERASE,URINE NEGATIVE (NEGATIVE); NITRITE,URINE NEGATIVE (NEGATIVE); PROTEIN,URINE 30 mg/dL (NEGATIVE); URINE SPECIFIC GRAVITY 1.026; UROBILINOGEN,URINE NEGATIVE mg/dL (<2.0)
[2020-03-16] MEDS ORDERED: HYDROMORPHONE HCL INJ/PF 2 MG/ML AMPULE IV ONE (06:14)
--- NOTE | 2020-03-16 06:16 | ER Document Report ---
ED GI/ - General Chief Complaint: Possible Kidney Stone Stated Complaint: VOMITING,FLANK PAIN Time Seen by Provider: 03/16/20 06:06 Primary Care Provider: SULEMA POOLE NP [Primary Care Provider] - Follow up as needed Notes: 34-year-old man presents to the emergency department with complaint of left flank pain which began approximately 430 this morning. He complains of severe pain which is radiating into the abdominal area, 2 episodes of vomiting and he has had a history of kidney stones in the past. This is a kidney stone as it is similar to that his prior episodes. TRAVEL OUTSIDE OF THE [place] IN LAST 30 DAYS: Yes - Related Data Allergies/Adverse Reactions: aspartame Allergy (Verified 01/24/17 13:02) Past Medical History - Social History Smoking Status: Never Smoker Chew tobacco use (# tins/day): No Frequency of alcohol use: None Drug Abuse: None Family History: Reviewed & Not Pertinent Patient has homicidal ideation: No - Past Medical History Cardiac Medical History: Denies: Hx Coronary Artery Disease, Hx Heart Attack, Hx Hypertension Pulmonary Medical History: Denies: Hx Asthma, Hx Bronchitis, Hx COPD, Hx Pneumonia Neurological Medical History: Denies: Hx Cerebrovascular Accident, Hx Seizures Renal/ Medical History: Reports: Hx Kidney Stones. Denies: Hx Peritoneal Dialysis GI Medical History: Reports: Hx Gastroesophageal Reflux Disease Musculoskeletal Medical History: Denies Hx Arthritis - Immunizations Hx Diphtheria, Pertussis, Tetanus Vaccination: Yes Review of Systems - Review of Systems Notes: Constitutional: Negative for fever. HENT: Negative for sore throat. Eyes: Negative for visual changes. Cardiovascular: Negative for chest pain. Respiratory: Negative for shortness of breath. Gastrointestinal: + Vomiting x2 Genitourinary: + Left flank pain Musculoskeletal: Negative for back pain. Skin: Negative for rash. Neurological: Negative for headaches, weakness or numbness. 10 point ROS negative except as marked above and in HPI. Physical Exam - Vital signs Vitals: Temp Pulse Resp BP Pulse Ox 97.5 F 99 16 142/95 H 100 03/16/20 05:31 03/16/20 05:31 03/16/20 05:31 03/16/20 05:31 03/16/20 05:31 - Notes Notes: PHYSICAL EXAMINATION: Physical Exam: General: Well-nourished well-developed in no acute distress HEENT: NC/AT, pupils equal round and reactive to light, MM moist,nares clear, oropharynx clear, airway patent Neck: supple, no adenopathy, no masses. Good range of motion Lungs: clear, no wheezing, no rales no rhonchi CVS: Regular rate and rhythm no murmur gallop or rub Abdomen: Soft, active, nontender, no masses, no hepatosplenomegaly Ext: No edema, clubbing or cyanosis. Neuro: Alert and responsive, moving all 4 extremities on command, cranial nerves intact, no focal findings Skin: Intact no open lesions, no rash PSYCH: Normal mood, normal affect. Course - Re-evaluation Re-evalutation: 03/16/20 07:25 Patient presents with a complaint of renal colic, left-sided. + Nausea x2, he was treated with Zofran 8 mg, Toradol 30 mg and IV fluids. He continued to have significant pain, hydromorphone 1 mg IV is given. Patient is more comfortable at this time. CT scan reveals a 3 mm ureteral calculus at the UVJ left ureter, mild hydroureter and mild hydronephrosis is noted. Explained to the patient that he does have a kidney stone and likely in a position that he will pass it. He was given information for follow-up with urology as needed. - Vital Signs Vital signs: Temp Pulse Resp BP Pulse Ox 97.5 F 99 16 142/95 H 100 03/16/20 05:34 03/16/20 05:31 03/16/20 05:31 03/16/20 05:31 03/16/20 05:31 - Laboratory Result Diagrams: 03/16/20 05:49 03/16/20 05:49 Laboratory results interpreted by me: 03/16/20 03/16/20 03/16/20 05:49 05:49 05:49 Lymph % (Auto) 46.4 H Seg Neutrophils % 38.9 L Glucose 127 H ALT 57 H Urine Protein 30 H Urine Blood LARGE H - Diagnostic Test Radiology reviewed: Image reviewed, Reports reviewed - CT abdomen pelvis with out oral or IV contrast: 3 mL calculus left UVJ, mild hydronephrosis, mild hydroureter. Bilateral nonobstructing stones are noted, hepatic steatosis Discharge - Discharge Clinical Impression: Left ureteral calculus, Renal colic on left side Condition: Good Disposition: HOME, SELF-CARE Instructions: Kidney Stone ([facility]), Oral Narcotic Medication ([facility]), Pain Medication Injection ([facility]), Toradol Injection ([facility]) Additional Instructions: Please take medications as prescribed, [place], Flomax, Zofran, Toradol. Push fluids, follow-up with urology as needed. HOME CARE INSTRUCTIONS & INFORMATION: Thank you for choosing us for your medical needs. We hope you're satisfied with the care you received. After you leave, you must properly care for your problem and, at the same time, observe its progress. Any condition can change. Some illnesses can change rapidly over hours or days. If your condition worsens, return to the Emergency Department or see your physician promptly. ABOUT YOUR X-RAYS AND EKG'S: If you had an EKG or X-rays taken, they have been read by the Emergency Physician. The X-rays and EKG's will also be read by a Radiologist or Photo Studio Assistant within 24 hours. If discrepancies are noted, you will be notified by telephone. Please be certain the ED has a correct telephone number & address where you can be reached. Also, realize that some fractures or abnormalities do not show up on initial X-rays. If your symptoms continue, see your physician. ABOUT YOUR LABORATORY TEST: If you had laboratory tests, the results have been reviewed by the Emergency Physician. Some test results (for example cultures) may not be available for several days. You will be contacted if any test result shows you need additional treatment. Please be certain the ED has a correct telephone number and address where you can be reached. ABOUT YOUR MEDICATIONS: You will receive instructions on how to take your medicine on the prescription label you receive. Additional information may be provided by the Pharmacy. If you have questions afterwards, call the ED for clarification or further instructions. Some prescribed medications may cause drowsiness. Do not perform tasks such as driving a car or operating machinery without consulting your Pharmacist. If you feel you need a refill of pain medication, your condition will need re-evaluation. Please do not call for a refill of any medication. ABOUT YOUR SIGNATURE: Signature of this document acknowledges to followin. Understanding that you received emergency treatment and that you may be released before al medical problems are known or treated. Please be certain the ED has a correct phone number & address where you can be reached. 2. Acknowledgement that you will arrange for follow-up care as recommended. 3. Authorization for the Emergency Physician to provide information to your follow-up Physician in order to maximize your care. AT ANY TIME, IF YOUR SYMPTOMS CHANGE SIGNIFICANTLY OR WORSEN OR YOU DEVELOP NEW SYMPTOMS, RETURN TO THE EMERGENCY DEPARTMENT IMMEDIATELY FOR RE-EVALUATION. OUR GOAL IS TO PROVIDE EXCELLENT MEDICAL CARE! WE HOPE THAT WE HAVE MET YOUR EXPECTATIONS DURING YOUR EMERGENCY DEPARTMENT VISIT AND THAT YOU FEEL YOU HAVE RECEIVED EXCELLENT CARE! Prescriptions: Ketorolac Tromethamine [Toradol 10 mg Tablet] 10 mg PO Q6HP PRN #15 tablet PRN Reason: For Pain Scale 4-5 Tamsulosin HCl [Flomax 0.4 mg Cap.sr] 0.4 mg PO DAILY #7 cap.sr.24h Hydrocodone/Acetaminophen [[place] 5-325 mg Tablet] 1 tab PO Q6 PRN #10 tablet PRN Reason: Ondansetron [Zofran Odt 4 mg Tablet] 1 - 2 tab PO Q4H PRN #15 tab.rapdis PRN Reason: For Nausea/Vomiting Referrals: SULEMA POOLE NP [Primary Care Provider] - Follow up as needed RAYNA DOBBINS MD [NO LOCAL MD] - Follow up as needed
[2020-03-16 06:24] LABS: ABSOLUTE EOSINOPHILS # (AUTO) 0.2 10^3/uL (0.0-0.6); ABSOLUTE LYMPHOCYTES (AUTO) 2.3 10^3/uL (0.5-4.7); ABSOLUTE MONOCYTES (AUTO) 0.6 10^3/uL (0.1-1.4); BASOPHILS % (AUTO) 0.5 % (0-2); EOSINOPHILS % (AUTO) 3.2 % (0-6); HEMATOCRIT 44.5 % (37.9-51.0); HEMOGLOBIN 15.7 g/dL (13.5-17.0); LYMPHOCYTES % (AUTO) 46.4 % (13-45); MEAN CORPUSCULAR HEMOGLOBIN 29.9 pg (27.0-33.4); MEAN CORPUSCULAR HGB CONC 35.2 g/dL (32.0-36.0); MEAN CORPUSCULAR VOLUME 85 fl (80-97); PLATELET COUNT 213 10^3/uL (150-450); RED BLOOD COUNT 5.24 10^6/uL (4.35-5.55); RED CELL DISTRIBUTION WIDTH 13.2 % (11.5-14.0); SEGMENTED NEUTROPHILS % (AUTO) 38.9 % (42-78); TOTAL CELLS COUNTED % (AUTO) 100 %
[2020-03-16 06:38] LABS: ALBUMIN 4.4 g/dL (3.5-5.0); ALKALINE PHOSPHATASE 56 U/L (38-126); ANION GAP 10 (5-19); ASPARTATE AMINO TRANSFERASE 33 U/L (17-59); BILIRUBIN,TOTAL 0.7 mg/dL (0.2-1.3); BLOOD UREA NITROGEN 17 mg/dL (7-20); CALCIUM 9.5 mg/dL (8.4-10.2); CARBON DIOXIDE 25 mmol/L (22-30); CHLORIDE 103 mmol/L (98-107); GLUCOSE 127 mg/dL (75-110); TOTAL PROTEIN 7.7 g/dL (6.3-8.2)
--- NOTE | 2020-03-16 06:58 | RADIOLOGY REPORT (SQ) ---
EXAM DESCRIPTION: CT ABDOMEN PELVIS WITHOUT IV CONTRAST COMPLETED DATE/TME: 03/16/2020 06:14 CLINICAL HISTORY: Left flank pain COMPARISON: 01/18/2019 TECHNIQUE: CT of the abdomen and pelvis without IV contrast. Evaluation of the solid organs and vasculature is suboptimal due to lack of IV contrast. FINDINGS: Lung Bases: The visualized lung bases are clear. Bones: No destructive bone lesions identified. Abdomen: Liver: The liver has normal size and decreased density. Gallbladder: No calcified gallstones. Spleen, Pancreas, and Adrenal Glands: The spleen, pancreas, and adrenal glands are unremarkable. Kidneys: There is a 0.3 cm obstructing calculus at the left UVJ producing mild left hydroureter and hydronephrosis. Bilateral punctate nonobstructing nephrolithiasis. No right-sided hydronephrosis Vasculature: The aorta and IVC have normal caliber and position. Stomach: The stomach and duodenum have normal course. Other: No free intraperitoneal air. No free fluid or lymphadenopathy. Pelvis: Bladder: Urinary bladder is unremarkable. Bowel: No dilated loops of large or small bowel. Appendix: Prior appendectomy. Pelvis: Prostate is not enlarged. IMPRESSION: 1. There is a 0.3 cm obstructing calculus at the left UVJ producing mild left hydroureter and hydronephrosis. 2. Bilateral nonobstructing nephrolithiasis. 3. Hepatic steatosis. This exam was performed according to our departmental dose-optimization program, which includes automated exposure control, adjustment of the mA and/or kV according to patient size and/or use of iterative reconstruction technique.
[2020-03-16] MEDS ORDERED: NORMAL SALINE 1000 ML 1,000 ML IV ONE (07:24)
[2020-03-16] MEDS ORDERED: MORPHINE SULFATE 10 MG/ML INJ IV ONE (07:41)
[2020-03-16 08:38] VITALS: BP 114/70
== END 2020-03-16 08:44 | disposition home or self-care (01) ==
LOC: ER 05:08
DX: N13.4 Hydroureter (principal); N13.2 Hydronephrosis with renal and ureteral calculous obstruction; R10.9 Unspecified abdominal pain; R11.10 Vomiting, unspecified
CPT/HCPCS: 99284; 96361; 96374; 96375; 36415; 83690; 85025; 80053; 81001; 74176; J1885; J2270; J1170; J2405; J7030